=== PATIENT | male | born 1955 | race Caucasian/White ===

== ENCOUNTER 2017-11-13 22:27 | Inpatient (IN) | payer OTHER ==
[~2017-11-13] VITALS: Ht 170.2 cm; Wt 81.4 kg
--- NOTE | 2017-11-13 22:27 | NUR ---
BBRA 89; "I FEEL OFF, MY BLOOD PRESSURE FEELS HIGH" BP CONTINUOUS MINING MACHINE COAL MINER 202/94 AND BS [address] NO SOB OR PAIN AT THIS MOMENT. PT IS NOTED A LITTLE STUBBORN AND REFUSING SOME TREATMENTS.
[2017-11-13] MEDS ORDERED: ALBUTEROL FS 2.5 MG/3 ML VIAL.NEB ONE (22:47)
--- NOTE | 2017-11-13 22:51 | NUR ---
PT REFUSED BREATHING TX
[2017-11-13] MEDS ORDERED: ACETAMINOPHEN 325 MG TABLET PO ONE (23:00)
[2017-11-13] MEDS ORDERED: ALBUTEROL FS 2.5 MG/3 ML VIAL.NEB NEB ONE (23:00)
--- NOTE | 2017-11-13 23:00 | NUR ---
FAMILY AT BEDSIDE.
[2017-11-13] MEDS ORDERED: ACETAMINOPHEN ES 500 MG TABLET ONE (23:01)
[2017-11-13 23:49] LABS: BASOPHILS % (AUTO) 0.2 % (0.0-2.0); EOSINOPHILS % (AUTO) 0.7 % (0.0-6.0); HEMATOCRIT 40 % (39-51); HEMOGLOBIN 13.6 g/dL (13.5-17.5); LYMPHOCYTES # (AUTO) 2.2 /CMM (0.8-4.8); LYMPHOCYTES % (AUTO) 10.7 % (20.0-44.0); MEAN CORPUSCULAR HGB CONC 34 g/dl (31.0-36.0); MEAN CORPUSCULAR VOLUME 89 fL (80-96); MONOCYTES # (AUTO) 1.1 /CMM (0.1-1.30); MONOCYTES % (AUTO) 5.4 % (2.0-12.0); NEUTROPHILS # (AUTO) 17.5 /CMM (1.8-8.9); PLATELET COUNT (AUTO) 238 /CMM (150-450); RDW COEFFICIENT OF VARIATION 14.4 (11.5-15.0); RED BLOOD CELL COUNT(AUTO) 4.51 MIL/uL (4.5-6.0); WHITE BLOOD COUNT (AUTO) 21.1 K/uL (4.3-11.0)
[2017-11-14] VITALS (7 sets, daily range): BP systolic 111–147; BP diastolic 69–80
[2017-11-14 00:01] LABS: CALCIUM, SERUM 8.1 mg/dL (8.5-10.1); CARBON DIOXIDE 22 mmol/L (21-32); CHLORIDE 103 mmol/L (98-107); CREATININE 1.5 mg/dL (0.6-1.3); GLUCOSE 205 mg/dL (74-106); POTASSIUM 3.7 mmol/L (3.5-5.1); SODIUM SERUM 140 mmol/L (136-145); UREA NITROGEN, BLOOD 19 mg/dL (7-18)
[2017-11-14 00:10] LABS: TROPONIN I < 0.017 ng/mL (0.00-0.056)
[2017-11-14 00:13] LABS: ALANINE AMINOTRANSFERASE 16 U/L (12-78); ALBUMIN 3.4 g/dL (3.4-5.0); ALKALINE PHOSPHATASE 75 U/L (46-116); ASPARTATE AMINOTRANSFERASE 5 U/L (15-37); B-TYPE NATRIURETIC PEPTIDE 1975 PG/ML (0-125); BILIRUBIN,DIRECT 0.1 mg/dL (0.0-0.2); BILIRUBIN,TOTAL 0.5 mg/dL (0.2-1.0); TOTAL PROTEIN, SERUM 7.3 g/dL (6.4-8.2)
--- NOTE | 2017-11-14 00:18 | NUR ---
ER MD AT BEDSIDE WANTING TO ADMIT FOR POSSIBLE PNA. PT REFUSING "I DONT HAVE PNA". WILL MONITOR
[2017-11-14] MEDS ORDERED: AZITHROMYCIN 500 MG in IV D5W 250 ML IV ONE (00:30)
[2017-11-14] MEDS ORDERED: CEFTRIAXONE 1GM BAG (ER ONLY) 1 GM/50 ML PIGGYBACK IV ONE (00:30)
[2017-11-14] MEDS ORDERED: AZITHROMYCIN 500 MG VIAL ONE (00:34)
[2017-11-14] MEDS ORDERED: CEFTRIAXONE 1 G VIAL ONE (00:34)
[2017-11-14] MEDS ORDERED: BENA20TA9 PO (00:46)
[2017-11-14] MEDS ORDERED: WARF-58 PO (00:52)
[2017-11-14] MEDS ORDERED: EZET10TA14 PO (00:52)
[2017-11-14] MEDS ORDERED: PARO20TA7 PO (00:52)
[2017-11-14] MEDS ORDERED: METO-356 PO (00:52)
[2017-11-14] MEDS ORDERED: AMLO5TAB7 PO (00:52)
[2017-11-14] MEDS ORDERED: MECL-102 PO (00:52)
[2017-11-14] MEDS ORDERED: GLIP10TA11 PO (00:52)
[2017-11-14] MEDS ORDERED: CLOP75TA15 PO (00:52)
[2017-11-14] MEDS ORDERED: GABA-532 PO (00:52)
--- NOTE | 2017-11-14 01:00 | NUR ---
SLOOP CAPTAIN NOTE RECEIVED REPORT FOR THE PATIENT FROM ENDBAND CUTTER HANDHEMALATHA TREVINO. PATIENT TO BE ADMITTED TO THE TELEMETRY UNIT.
--- NOTE | 2017-11-14 01:35 | NUR ---
SCRIPT ARTIST OPENING NOTE RECEIVED PATIENT ON A GURNEY, ABLE TO AMBULATE WITH ASSISTANCE FROM GURNEY TO BED. ALERT ORIENTED X4, ON 4L O2 SATURATING IN 97% PERCENT. DENIES SOB OR CHEST PAIN AT THIS TIME. IN NO APPARENT DISTRESS OR DISCOMFORT. INITIAL PHYSICAL ASSESSMENT COMPLETED, VITAL SIGNS TAKEN, PATIENT IN STABLE CONDITION, IV SITE ON LEFT FA, 18G, WITH ANTIBIOTICS RUNNING AT 250ML/HR. PATIENT AND INTACT NO SIGN OF INFILTRATION. PATIENT WAS MADE COMFORTABLE IN BED. ABLE TO COMMUNICATE NEEDS. PATIENT'S AT BEDSIDE, BELONGINGS CHECKED AND COUNTED FOR. SAFETY MEASURES IN PLACE, BED IN LOW LOCKED POSITION, SIDE RAILS UP X2, CALL LIGHT WITHIN EASY REACH, WILL CARRY OUT ADMISSION ORDERS AND CONTINUE TO MONITOR.
--- NOTE | 2017-11-14 03:00 | NUR ---
RN NOTES PATIENT WITH ORDERS FOR RESPIRATORY CULTURE, SPECIMEN CONTAINER WAS GIVEN TO PATIENT. PATIENT STATED HE DOESN'T WANT TO COUGH RIGHT NOW, WILL DO IT WHENEVER HE FEELS THE URGE. CONTAINER LEFT BY THE BEDSIDE.
[2017-11-14] MEDS ORDERED: Z GUARD REMEDY 2 OZ OINT TP PRN (04:00)
[2017-11-14] MEDS ORDERED: ALBUTEROL FS 2.5 MG/0.5 ML VIAL.NEB NEB PRN (04:00)
[2017-11-14] MEDS ORDERED: DEXAMETHASONE SOD PHOSPHATE 10 MG/ML VIAL IV ONE (04:00)
[2017-11-14] MEDS ORDERED: ZOLPIDEM TARTRATE 5 MG TABLET PO PRN (04:00)
[2017-11-14] MEDS ORDERED: ONDANSETRON HCL/PF 4 MG/2 ML VIAL IVP PRN (04:00)
[2017-11-14] MEDS ORDERED: GUAIFENESIN/D-METHORPHAN HB 5 ML UDC PO PRN (04:00)
[2017-11-14] MEDS ORDERED: ACETAMINOPHEN 325 MG TABLET PO PRN (04:00)
[2017-11-14] MEDS ORDERED: IBUPROFEN 600 MG TABLET PO PRN (04:00)
[2017-11-14] MEDS ORDERED: IPRATROPIUM NEB FS 0.5 MG/2.5 ML AMPUL.NEB NEB PRN (04:00)
--- NOTE | 2017-11-14 05:00 | NUR ---
PLASTIC SURGERY NURSE NOTE PATIENT STILL HASN'T PROVIDED WITH SPUTUM FOR THE CULTURE. REMINDED THAT IT NEEDS TO BE DONE SOON POSSIBLE. WILL CONTINUE TO MONITOR.
[2017-11-14 06:40] LABS: BASOPHILS % (AUTO) 0.3 % (0.0-2.0); EOSINOPHILS % (AUTO) 0.3 % (0.0-6.0); HEMATOCRIT 37 % (39-51); HEMOGLOBIN 12.9 g/dL (13.5-17.5); LYMPHOCYTES # (AUTO) 3.5 /CMM (0.8-4.8); LYMPHOCYTES % (AUTO) 23.2 % (20.0-44.0); MEAN CORPUSCULAR HGB CONC 35 g/dl (31.0-36.0); MEAN CORPUSCULAR VOLUME 90 fL (80-96); MONOCYTES # (AUTO) 1.1 /CMM (0.1-1.30); MONOCYTES % (AUTO) 7.1 % (2.0-12.0); NEUTROPHILS # (AUTO) 10.5 /CMM (1.8-8.9); NEUTROPHILS % (AUTO) 69.1 % (43.0-81.0); PLATELET COUNT (AUTO) 208 /CMM (150-450); RDW COEFFICIENT OF VARIATION 15.1 (11.5-15.0); RED BLOOD CELL COUNT(AUTO) 4.16 MIL/uL (4.5-6.0); WHITE BLOOD COUNT (AUTO) 15.2 K/uL (4.3-11.0)
--- NOTE | 2017-11-14 06:44 | NUR ---
LOADER OPERATOR SUPERVISOR CLOSING NOTE PATIENT IN BED SLEEPING, EASILY AROUSED WITH VERBAL STIMULI, ORIENTED X4, ON 4L O2 SATURATING IN 97% PERCENT. IN NO APPARENT DISTRESS OR DISCOMFORT AT THIS TIME. PATIENT ON TELE MONITORING WITH SR AND HR IN 50-60S. PATIENT IN STABLE CONDITION, IV SITE ON LEFT FA, 18G PATIENT AND INTACT NO SIGN OF INFILTRATION. PATIENT KEPT CLEAN AND COMFORTABLE IN BED. ABLE TO COMMUNICATE NEEDS. SAFETY MEASURES IN PLACE, BED IN LOW LOCKED POSITION, SIDE RAILS UP X2, CALL LIGHT WITHIN EASY REACH, WILL ENDORSE TO AM NURSE FOR CONTINUITY OF CARE.
[2017-11-14 07:21] LABS: CALCIUM, SERUM 7.9 mg/dL (8.5-10.1); CREATININE 1.6 mg/dL (0.6-1.3); MAGNESIUM 1.6 mg/dL (1.8-2.4); PHOSPHORUS 3.4 mg/dL (2.5-4.9); POTASSIUM 3.8 mmol/L (3.5-5.1)
--- NOTE | 2017-11-14 08:00 | NUR ---
ms rn received on bed, awake,alert,oriented x4,not in any form of distress, on o2 2 liters w/ adequate saturation,no sob noted ,denies pain at this time, will monitor patient's condition.
[2017-11-14] MEDS ORDERED: ENOXAPARIN SODIUM 40 MG/0.4 ML DISP.SYRIN SQ SCH (09:00)
--- NOTE | 2017-11-14 09:00 | NUR ---
MS PENNY BREAKFAST SERVED.DUE MEDS GIVEN,TOLERATED WELL.
[2017-11-14] MEDS ORDERED: Magnesium 1GM/D5W 100ML PREMIX 100 ML IV SCH (10:34)
--- NOTE | 2017-11-14 11:20 | NUR ---
MS RN WAS SEEN BY Anyi OCONNOR/ ORDERS MADE AND CARRIED OUT.
[2017-11-14] MEDS: MECLIZINE HCL 25 MG TABLET PO SCH ×2 (13:00→18:57)
[2017-11-14] MEDS ORDERED: ACETAMINOPHEN 650 MG/20.3 ML UDC NG PRN (15:00)
[2017-11-14 18:28] LABS: APPEARANCE,URINE CLEAR (CLEAR); BILIRUBIN,URINE NEGATIVE (NEGATIVE); BLOOD, URINE NEGATIVE Ery/uL (NEGATIVE); COLOR,URINE YELLOW (YELLOW); KETONES,URINE NEGATIVE (NEGATIVE); LEUKOCYTE ESTERASE ,URINE NEGATIVE (NEGATIVE); NITRITE, URINE NEGATIVE (NEGATIVE); PROTEIN,URINE NEGATIVE (NEGATIVE); UGLUCOSE 3+ mg/dL (NEGATIVE); UROBILINOGEN,URINE 0.2 EU/dL (0.2)
--- NOTE | 2017-11-14 19:47 | NUR ---
MS RN INITIAL NOTE PT IS OUT OF BED WALKING AROUND, STEADY GAIT. TOLERATING ACTIVITY WELL. NO SIGNS OF SOB OR DISTRESS. IV ACCESS IS INTACT AND PATENT. DENIES PAIN AT THIS TIME. BED IS IN LOW AND LOCKED POSITION, CALL LIGHT WITHIN REACH. WILL CONTINUE TO MONITOR PT
[2017-11-14] MEDS ORDERED: GABAPENTIN 100 MG CAPSULE PO SCH (22:00)
[2017-11-15] MEDS ORDERED: CEFTRIAXONE 1 G in IV NS 0.9% 50 ML IV SCH ×2
[2017-11-15] MEDS ORDERED: AZITHROMYCIN 500 MG in IV D5W 250 ML IV SCH ×2
[2017-11-15 06:38] LABS: INR 1.56 (0.87-1.13)
[2017-11-15 06:42] LABS: BASOPHILS % (AUTO) 0.2 % (0.0-2.0); HEMATOCRIT 35 % (39-51); LYMPHOCYTES # (AUTO) 2.4 /CMM (0.8-4.8); LYMPHOCYTES % (AUTO) 13.5 % (20.0-44.0); MEAN CORPUSCULAR HGB CONC 34 g/dl (31.0-36.0); MEAN CORPUSCULAR VOLUME 90 fL (80-96); MONOCYTES % (AUTO) 5.7 % (2.0-12.0); NEUTROPHILS # (AUTO) 14.5 /CMM (1.8-8.9); NEUTROPHILS % (AUTO) 80.6 % (43.0-81.0); PLATELET COUNT (AUTO) 209 /CMM (150-450); RDW COEFFICIENT OF VARIATION 14.9 (11.5-15.0); RED BLOOD CELL COUNT(AUTO) 3.87 MIL/uL (4.5-6.0)
[2017-11-15 06:48] LABS: CALCIUM, SERUM 8.4 mg/dL (8.5-10.1); CREATININE 1.5 mg/dL (0.6-1.3); PHOSPHORUS 3.6 mg/dL (2.5-4.9); POTASSIUM 3.8 mmol/L (3.5-5.1)
--- NOTE | 2017-11-15 06:54 | NUR ---
MS RN CLOSING NOTE PT IS IN BED RESTING. NO SIGNS OF SOB OR DISTRESS ON RA. IV ACCESS IS INTACT AND PATENT. NO ACUTE CHANGES THROUGHOUT THE SHIFT. BED IS IN LOW AND LOCKED POSITION, CALL LIGHT WITHIN REACH. WILL ENDORSE TO DAYSHIFT
[2017-11-15 07:00] LABS: THYROID STIMULATING HORMONE 0.426 uIU/mL (0.358-3.74)
[2017-11-15 08:00] VITALS: BP 123/75
--- NOTE | 2017-11-15 08:00 | NUR ---
ms rn received on bed, awake,alert,oriented x4,not in any form of distress, respirations even and unlabored,no sob noted, lungs are clear,abdomen soft,positive bowel sounds,denies pain at this time, will monitor patient.
[2017-11-15 08:40] LABS: ABG BASE EXCESS -3.1 mmol/L; ABG OXYGEN SATURATION 95.5 % (92.0-98.5); ABG PH 7.405 (7.350-7.450); COHb 0.3 % (0.5-1.5); MetHb 0.3 % (0.0-1.5); O2Hb 94.9 % (94.0-97.0); SITE, ABG Right Radial; VENT MODE, BG R/A
[2017-11-15] MEDS ORDERED: METOPROLOL SUCCINATE 25 MG TAB.SR.24H PO SCH (09:00)
[2017-11-15] MEDS ORDERED: AMLODIPINE BESYLATE 5 MG TABLET PO SCH (09:00)
[2017-11-15] MEDS ORDERED: CLOPIDOGREL BISULFATE 75 MG TABLET PO SCH (09:00)
[2017-11-15] MEDS ORDERED: glipiZIDE 10 MG TABLET PO SCH (09:00)
[2017-11-15] MEDS ORDERED: EZETIMIBE 10 MG TABLET PO SCH (09:00)
[2017-11-15] MEDS ORDERED: PAROXETINE HCL 20 MG TABLET PO SCH (09:00)
[2017-11-15] MEDS: MECLIZINE HCL 25 MG TABLET PO SCH ×2 (09:13→13:35)
[2017-11-15 09:14] VITALS: BP 123/75
--- NOTE | 2017-11-15 09:35 | NUR ---
ms perdomo breakfast given, due meds given,tolerated well.
--- NOTE | 2017-11-15 12:00 | NUR ---
ms rn was seen by ananda with order to go home today,will monitor patient.
[2017-11-15] MEDS ORDERED: LEVO750T21 PO (12:51)
--- NOTE | 2017-11-15 13:00 | NUR ---
ms turner off instructions given,patient went home accompanied by ,all needs attended.
[2017-11-15] MEDS ORDERED: LACTOBACILLUS RHAMNOSUS GG 1 EACH CAP.SPRINK PO SCH (17:00)
== END 2017-11-15 13:40 | disposition home or self-care (01) | DRG 193 ==
LOC: ER 22:29 → TELE 11-14 01:18 → MED 11-14 11:51
PROVIDERS: ADMIT Nurse Practitioner Acute Care; ATTEND Nurse Practitioner Acute Care
DX: J18.9 Pneumonia, unspecified organism (principal); N17.0 Acute kidney failure with tubular necrosis; I13.0 Hypertensive heart and chronic kidney disease with heart failure and stage 1 through stage 4 chronic kidney disease, or unspecified chronic kidney disease; I50.32 Chronic diastolic (congestive) heart failure; E11.22 Type 2 diabetes mellitus with diabetic chronic kidney disease; I25.2 Old myocardial infarction; N18.9 Chronic kidney disease, unspecified; E83.42 Hypomagnesemia; D72.829 Elevated white blood cell count, unspecified
CPT/HCPCS: 36415; 36600; 71045-TC; 80048-TC; 80061-TC; 80076-TC; 81000-TC; 83605-TC; 83735-TC; 83880; 84100-TC; 84443-TC; 84484-TC; 85025-TC; 85730-TC; 87040-TC; 87081-TC; 93307-TC; A4216; A4606; J0456; J0696; J1100; J1650; J3475; J7050; J7060; J8597; Z7610

== ENCOUNTER 2019-01-11 17:22 | Inpatient (IN) | payer OTHER ==
[~2019-01-11] VITALS: Ht 165.1 cm; Wt 83.5 kg
[2019-01-11] VITALS (17 sets, daily range): BP systolic 99–194; BP diastolic 46–143
[~2019-01-11 17:22] MED LIST: AMLO5TAB9 PO; CLOP75TA15 PO; EZET10TA14 PO; GABA-532 PO; GLIP10TA11 PO; LEVO750T21 PO; MECL-102 PO; METO-356 PO; PARO20TA7 PO; WARF-58 PO
[2019-01-11] MEDS ORDERED: FUROSEMIDE 40 MG/4 ML VIAL IV ONE (17:30)
[2019-01-11] MEDS ORDERED: MORPHINE SULFATE INJ 2 MG/ML DISP.SYRIN IV ONE (17:30)
[2019-01-11] MEDS ORDERED: ONDANSETRON HCL/PF 4 MG/2 ML VIAL IVP ONE (17:30)
[2019-01-11] MEDS ORDERED: NITROGLYCERIN 0.4 MG/TAB BOTTLE SL ONE (17:30)
[2019-01-11] MEDS ORDERED: ASPIRIN 325 MG TABLET PO ONE (17:30)
[2019-01-11] MEDS ORDERED: ISOS30TA6 PO (17:36)
[2019-01-11] MEDS ORDERED: GLIP10TA21 PO (17:36)
[2019-01-11] MEDS ORDERED: BENA20TA9 PO (17:36)
[2019-01-11] MEDS ORDERED: METF-440 PO (17:36)
[2019-01-11] MEDS ORDERED: WARF2.5T85 PO (17:36)
[2019-01-11 17:37] LABS: BASOPHILS % (AUTO) 0.1 % (0.0-2.0); EOSINOPHILS % (AUTO) 1.5 % (0.0-6.0); HEMATOCRIT 45 % (39-51); LYMPHOCYTES # (AUTO) 3.4 /CMM (0.8-4.8); LYMPHOCYTES % (AUTO) 32.5 % (20.0-44.0); MEAN CORPUSCULAR HGB CONC 34 g/dl (31.0-36.0); MEAN CORPUSCULAR VOLUME 92 fL (80-96); MONOCYTES # (AUTO) 0.9 /CMM (0.1-1.30); MONOCYTES % (AUTO) 8.2 % (2.0-12.0); NEUTROPHILS # (AUTO) 6.1 /CMM (1.8-8.9); NEUTROPHILS % (AUTO) 57.7 % (43.0-81.0); PLATELET COUNT (AUTO) 244 /CMM (150-450); RED BLOOD CELL COUNT(AUTO) 4.86 MIL/uL (4.5-6.0); WHITE BLOOD COUNT (AUTO) 10.5 K/uL (4.3-11.0)
[2019-01-11] MEDS ORDERED: ONDANSETRON HCL/PF 4 MG/2 ML VIAL ONE (17:38)
[2019-01-11] MEDS ORDERED: FUROSEMIDE 40 MG/4 ML VIAL ONE (17:38)
[2019-01-11] MEDS ORDERED: MORPHINE SULFATE INJ 2 MG/ML DISP.SYRIN ONE (17:38)
[2019-01-11] MEDS ORDERED: ASPIRIN 325 MG TABLET ONE (17:38)
[2019-01-11] MEDS ORDERED: NITROGLYCERIN 0.4 MG/TAB BOTTLE ONE (17:38)
--- NOTE | 2019-01-11 17:42 | NUR ---
BIB RA C/O SOB. PATIENT A/OX4, RECEIVED ON NRB MASK, CHANGED TO NASAL CANNULA AT 5LPM WITH SPO2 OF 98%. DENIES CHEST PAIN OR DISCOMFORT. AT BEDSIDE. PIV PRESENT SPORTS BROADCASTER. WILL CONTINUE TO MONITOR.
[2019-01-11 17:48] LABS: CALCIUM, SERUM 8.9 mg/dL (8.5-10.1); CREATININE 1.4 mg/dL (0.6-1.3)
[2019-01-11 18:01] LABS: ALBUMIN 3.3 g/dL (3.4-5.0); BILIRUBIN,TOTAL 0.3 mg/dL (0.2-1.0); TOTAL PROTEIN, SERUM 7.4 g/dL (6.4-8.2)
--- NOTE | 2019-01-11 18:10 | NUR ---
CALLED CLOTH DOFFER THROUGH OPERATOR. ON THE PHONE WITH DR RATLIFF
--- NOTE | 2019-01-11 18:11 | NUR ---
306-2 TELE UPDATED BED
[2019-01-11] MEDS ORDERED: NTG 50 MG/D5W250 ML BOTTL 250 ML IV ONE ×2 (18:17→18:30)
[2019-01-11] MEDS ORDERED: MAGNESIUM HYDROXIDE 30 ML UDC PO PRN (19:30)
[2019-01-11] MEDS ORDERED: MORPHINE SULFATE INJ 2 MG/ML DISP.SYRIN IV PRN (19:30)
[2019-01-11] MEDS ORDERED: ACETAMINOPHEN 325 MG TABLET PO PRN (19:30)
[2019-01-11] MEDS ORDERED: HYDROCODONE/APAP 5/325MG 1 EACH TABLET PO PRN (19:30)
[2019-01-11] MEDS ORDERED: ONDANSETRON HCL/PF 4 MG/2 ML VIAL IVP PRN (19:30)
[2019-01-11] MEDS ORDERED: MAG HYDROX/AL HYDROX/SIMETH 30 ML UDC PO PRN (19:30)
[2019-01-11] MEDS ORDERED: ZOLPIDEM TARTRATE 5 MG TABLET PO PRN (19:30)
[2019-01-11] MEDS ORDERED: Z GUARD REMEDY 2 OZ OINT TP PRN (19:30)
--- NOTE | 2019-01-11 19:31 | NUR ---
REPORT GIVEN TO MOUSTAPHA PENNY. PATIENT IS GOING TO ROOM 262.
--- NOTE | 2019-01-11 19:45 | NUR ---
SALES ENGINEER RCD PT FROM ER W/DX NSTEMI, HTN URGENCY; PT ON NITRO DRIP AT 20 MCG/MIN. PT A/O x4; AMBULATORY. NSR ON MONITOR. O2 5L NC WITH DIMINISHED LUNG SOUNDS. SKIN INTACT. AT BEDSIDE. UPDATED ON PLAN OF CARE. VERBALIZED UNDERSTANDING. PT REQUESTING HIS COUMADIN 2.5 HE DID NOT TAKE IT PRIOR TO ADMISSION. WILL PLACE CALL TO MD REGARDING MEDICATIONS.
--- NOTE | 2019-01-11 20:00 | NUR ---
AMERICAN SIGN LANGUAGE TEACHER PROVIDED PT WITH SANDWICH; REMAINS AT BEDSIDE.
[2019-01-11] MEDS ORDERED: NTG 50 MG/D5W250 ML BOTTL 250 ML IV PRN (20:30)
[2019-01-11] MEDS ORDERED: DEXTROSE 50%-WATER 50 ML DISP.SYRIN IV PRN (20:30)
[2019-01-11] MEDS: WARFARIN SODIUM 2.5 MG TABLET PO SCH (21:40)
--- NOTE | 2019-01-11 21:50 | NUR ---
DECORATION CHECKER BLOOD GLUCOSE 377; 10 UNITS REGULAR INSULIN SQ TO RLQ. PT EDUCATED ON THE USE OF INSULIN; VERBALIZES UNDERSTANDING. CONTINUE TO MONITOR.
[2019-01-11] MEDS: BLOOD SUGAR DIAGNOSTIC 1 EACH STRIP VI SCH (21:52)
[2019-01-11] MEDS: *INSULIN REGULAR(HUMULIN R)HUM 100 UNIT/ML VIAL SQ PRN (22:25)
[2019-01-12] VITALS (33 sets, daily range): BP systolic 102–177; BP diastolic 50–96
--- NOTE | 2019-01-12 01:00 | NUR ---
ETL TESTER NITRO DRIP TITRATED OFF BP 105/70; CONTINUE TO MONITOR.
[2019-01-12 05:19] LABS: BASOPHILS # (AUTO) 0.1 /CMM (0.0-0.2); BASOPHILS % (AUTO) 0.6 % (0.0-2.0); EOSINOPHILS % (AUTO) 1.8 % (0.0-6.0); HEMATOCRIT 41 % (39-51); LYMPHOCYTES # (AUTO) 3.2 /CMM (0.8-4.8); LYMPHOCYTES % (AUTO) 33.7 % (20.0-44.0); MEAN CORPUSCULAR HGB CONC 34 g/dl (31.0-36.0); MEAN CORPUSCULAR VOLUME 90 fL (80-96); MONOCYTES % (AUTO) 10.5 % (2.0-12.0); NEUTROPHILS # (AUTO) 5.1 /CMM (1.8-8.9); NEUTROPHILS % (AUTO) 53.4 % (43.0-81.0); PLATELET COUNT (AUTO) 221 /CMM (150-450); RED BLOOD CELL COUNT(AUTO) 4.55 MIL/uL (4.5-6.0); WHITE BLOOD COUNT (AUTO) 9.6 K/uL (4.3-11.0)
[2019-01-12 05:32] LABS: CALCIUM, SERUM 8.7 mg/dL (8.5-10.1); CREATININE 1.4 mg/dL (0.6-1.3); MAGNESIUM 1.7 mg/dL (1.8-2.4); PHOSPHORUS 3.3 mg/dL (2.5-4.9)
[2019-01-12 05:43] LABS: THYROID STIMULATING HORMONE 2.312 uIU/mL (0.358-3.74)
--- NOTE | 2019-01-12 06:20 | NUR ---
CLERICAL COORDINATOR PT VERY COMPLIANT WITH CARE HOWEVER HE DOES GET UPSET EASILY BECAUSE HE IS NOT ABLE TO SLEEP WELL; NOISE FROM THE MONITORS; HOURLY ROUNDING; LAB WORK. ATTEMPTED TO MAKE THE ENVIRONMENT QUIET POSSIBLE.
--- NOTE | 2019-01-12 06:23 | NUR ---
DURABLE MEDICAL EQUIPMENT REPAIRER PT DECLINED SCDS; PROVIDED PT ON BENEFITS BUT HE STILL DECLINED THEM.
[2019-01-12] MEDS: BLOOD SUGAR DIAGNOSTIC 1 EACH STRIP VI SCH ×4 (07:30→21:25)
[2019-01-12] MEDS ORDERED: METOPROLOL SUCCINATE 25 MG TAB.SR.24H PO SCH (09:00)
[2019-01-12] MEDS ORDERED: ASPIRIN 325 MG TABLET PO SCH (09:00)
[2019-01-12] MEDS: PANTOPRAZOLE 40 MG TABLET.DR PO SCH (09:02)
[2019-01-12] MEDS: EZETIMIBE 10 MG TABLET PO SCH (09:02)
[2019-01-12] MEDS: FUROSEMIDE 40 MG/4 ML VIAL IV SCH (09:02)
[2019-01-12] MEDS: ISOSORBIDE MONONITRATE (30MG) 30 MG TAB.SR.24H PO SCH (09:06)
[2019-01-12] MEDS: AMLODIPINE BESYLATE 5 MG TABLET PO SCH (09:06)
[2019-01-12] MEDS: CLOPIDOGREL BISULFATE 75 MG TABLET PO SCH (09:06)
[2019-01-12] MEDS: BENAZEPRIL HCL 20 MG TABLET PO SCH (09:07)
[2019-01-12] MEDS: ATORVASTATIN 40 MG TABLET PO SCH ×2 (09:30→09:53)
[2019-01-12] MEDS: Magnesium 1GM/D5W 100ML PREMIX 100 ML IV SCH ×2 (09:53→10:42)
--- NOTE | 2019-01-12 09:59 | NUR ---
RN NOTE PT REFUSED LIPITOR STATING "THAT MEDICATION GIVES ME BAD REACTION, I HAVE MUSCLE PAIN". DR VOGEL MADE AWRE WILL CHANGE IT TO SOMETHING ELSE. Addendum: 01/12/19 at 1001 by MARY CARNEY RN DR COBURN MADE AWARE.
[2019-01-12] MEDS ORDERED: POTASSIUM CHLORIDE 20 MEQ TAB.PRT.SR PO ONE (10:00)
[2019-01-12 12:08] LABS: CALCIUM, SERUM 8.9 mg/dL (8.5-10.1); CREATININE 1.4 mg/dL (0.6-1.3); POTASSIUM 3.6 mmol/L (3.5-5.1)
[2019-01-12] MEDS: INSULIN REGULAR, HUMAN 100 UNIT/ML 3 ML VIAL SQ PRN ×2 (12:25→18:08)
--- NOTE | 2019-01-12 13:00 | NUR ---
RN NOTES PATIENT AWAKE,ALERT, ORIENTED. DENIES PAIN, ACCUCHECKS DONE, INSULIN COVERAGE ADMINISTERED ORDERED. DENIES PAIN. VOIDING WELL.BP WITHIN RANGE.REST PROMOTED. CONTINUE MONITOR
--- NOTE | 2019-01-12 13:30 | NUR ---
RN NOTE TROPONIN LEVEL DECREASED TO 2.[address] COBURN, NO NEW ORDERS AND NO NEED TO RECHECK TROPONIN ANYMORE. WILL CONTINUE TO MONITOR THE PT. PT COMFORTABLE.
--- NOTE | 2019-01-12 16:29 | NUR ---
RN NOTE PT EARLIER VERBALIZED WISH TO GO HOME, INSTRUCTED TO STAY AT THE HOSPITAL DUE TO TROPONIN LEVELS AND TX, NEEDS TELEMETRY MONITORING AND CLEARANCE FROM THE DOCTOR. PT VERBALIZED UNDERSTANDING, AT BEDSIDE, PT TO BE TRANSFERRED TO TELEMETRY FLOOR TO RM 116-1, REPORT GIVEN TO ALFREDO VORA SULAIMAN.
--- NOTE | 2019-01-12 16:30 | NUR ---
RN NOTES RECEIVED REPORT FROM MARY THAT THEY ARE TRANSFERRING A PATIENT FROM ICU. PATIENT ARRIVED TO THE UNIT VIA WHEELCHAIR ACCOMPANIED BY TWO NURSES. PATIENT WAS TAKEN TO ROOM 116-1 AND WAS HELP TO THE BED. PATIENT ALERT AND ORIENTED X4. ABLE TO MAKE NEEDS KNOWN. NO PAIN OR ACUTE DISTRESS AT THIS TIME. RESPIRATION EVEN AND UNLABORED. SKIN IS DRY WARM TO TOUCH. PATIENT ON ROOM AIR. TOLERATED WELL. TELE MONITOR WAS PLACED. PATIENT IS CURRENTLY ON SINUS RHYTHM WITH HR OF 64. PATIENT WAS ABLE TO AMBULATE WITH HELP. NOTED WITH RIGHT FA #20G AND LEFT FA #20G. INTACT AND FLUSHING WELL. ALL NEEDS ANTICIPATED. KEPT CLEAN AND DRY. CALL LIGHT WITHIN REACHED. BED LOCKED AND IN LOWEST POSITION. SAFETY MEASURES OBSERVED. WILL CONTINUE TO MONITOR CLOSELY.
--- NOTE | 2019-01-12 18:39 | NUR ---
RN CLOSING NOTES PATIENT CONTINUES TO REMAIN IN STABLE CONDITION. PATIENT WAS ABLE TO TOLERATE MEALS WELL. B/S WAS CHECKED AND IT WAS 361. PATIENT WAS GIVEN 15 UNITS OF INSULIN ORDERED. PATIENT REMAINS IN SINUS RHYTHM WITH A HR OF 71. ALL NEEDS ANTICIPATED. KEPT CLEAN AND DRY. CALL LIGHT WITHIN REACHED. BED LOCKED AND IN LOWEST POSITION. SAFETY MEASURES OBSERVED. WILL CONTINUE TO MONITOR. ENDORSED TO PM NURSE FOR SULAIMAN.
--- NOTE | 2019-01-12 19:30 | NUR ---
RN OPEING NOTES: RECIEVED PT IN STABLE CONDITION. PATIENT REMAINS IN SINUS RHYTHM WITH A HR OF 71. ALL NEEDS ANTICIPATED.WILL KEPEP CLEAN AND DRY. CALL LIGHT WITHIN REACHED. BED LOCKED AND IN LOWEST POSITION. SAFETY MEASURES OBSERVED. WILL CONTINUE TO MONITOR AND CARRY OUT PLAN OF CARE..
[2019-01-12] MEDS: WARFARIN SODIUM 2.5 MG TABLET PO SCH (21:00)
[2019-01-12] MEDS: CARVEDILOL 6.25 MG TABLET PO SCH (21:19)
[2019-01-13 02:00] VITALS: BP 121/65
[2019-01-13 04:00] VITALS: BP 118/64
[2019-01-13 07:06] LABS: BASOPHILS # (AUTO) 0.1 /CMM (0.0-0.2); BASOPHILS % (AUTO) 0.7 % (0.0-2.0); EOSINOPHILS % (AUTO) 1.4 % (0.0-6.0); HEMATOCRIT 42 % (39-51); HEMOGLOBIN 14.3 g/dL (13.5-17.5); LYMPHOCYTES # (AUTO) 3.5 /CMM (0.8-4.8); LYMPHOCYTES % (AUTO) 34.3 % (20.0-44.0); MEAN CORPUSCULAR HGB CONC 34 g/dl (31.0-36.0); MEAN CORPUSCULAR VOLUME 90 fL (80-96); MONOCYTES # (AUTO) 1.1 /CMM (0.1-1.30); MONOCYTES % (AUTO) 10.9 % (2.0-12.0); NEUTROPHILS # (AUTO) 5.4 /CMM (1.8-8.9); NEUTROPHILS % (AUTO) 52.7 % (43.0-81.0); PLATELET COUNT (AUTO) 218 /CMM (150-450); RED BLOOD CELL COUNT(AUTO) 4.63 MIL/uL (4.5-6.0); WHITE BLOOD COUNT (AUTO) 10.1 K/uL (4.3-11.0)
--- NOTE | 2019-01-13 07:13 | NUR ---
RN OPEING NOTES: PT IN STABLE CONDITION. PATIENT REMAINS IN SINUS RHYTHM WITH A HR OF 71. ALL NEEDS MET. WILL KEPEP CLEAN AND DRY. CALL LIGHT WITHIN REACHED. BED LOCKED AND IN LOWEST POSITION. SAFETY MEASURES OBSERVED. WILL ENDORSE TO AM TO MONITOR AND CARRY OUT PLAN OF CARE
[2019-01-13 07:22] LABS: CALCIUM, SERUM 8.4 mg/dL (8.5-10.1); CREATININE 1.5 mg/dL (0.6-1.3); PHOSPHORUS 3.1 mg/dL (2.5-4.9); POTASSIUM 3.8 mmol/L (3.5-5.1)
[2019-01-13] MEDS: INSULIN REGULAR, HUMAN 100 UNIT/ML 3 ML VIAL SQ PRN ×3 (07:44→17:48)
[2019-01-13] MEDS: PANTOPRAZOLE 40 MG TABLET.DR PO SCH (07:45)
[2019-01-13] MEDS: BLOOD SUGAR DIAGNOSTIC 1 EACH STRIP VI SCH ×4 (07:54→22:45)
--- NOTE | 2019-01-13 07:56 | NUR ---
CLINICAL PROGRAM CONSULTANT NOTE RECEIVED PATIENT IN BED ALERT , ORIENTED, ON RA, NO SOB NOTED AT THIS TIME , RT FA HL INTACT , BLOOD SUGAR CHECKED WILL GIVE COVERAGE WITH INSULIN , ON TEL MONITOR SR , PLAN IF CARE DISCUSSED WITH PATIENT ,BED IN LOWEST AND LOCKED POSITION , CALL LIGHT WITHIN REACH ,WILL CONT TO MONITOR CLOSELY
[2019-01-13 08:00] VITALS: BP 166/81
[2019-01-13] MEDS: EZETIMIBE 10 MG TABLET PO SCH (08:10)
[2019-01-13] MEDS: BENAZEPRIL HCL 20 MG TABLET PO SCH (08:11)
[2019-01-13] MEDS: ISOSORBIDE MONONITRATE (30MG) 30 MG TAB.SR.24H PO SCH (08:11)
[2019-01-13] MEDS: CARVEDILOL 6.25 MG TABLET PO SCH ×2 (08:12→21:41)
[2019-01-13] MEDS: AMLODIPINE BESYLATE 5 MG TABLET PO SCH (08:13)
[2019-01-13] MEDS: CLOPIDOGREL BISULFATE 75 MG TABLET PO SCH (08:13)
[2019-01-13] MEDS: FUROSEMIDE 40 MG/4 ML VIAL IV SCH (08:14)
--- NOTE | 2019-01-13 09:00 | NUR ---
SEAFOOD CLERK NOTE ALL MORNING PO MEDS GIVEN INSTRUCTED HOW TO TAKE AND POSSIBLE SIDE EFFECTS
--- NOTE | 2019-01-13 10:52 | NUR ---
SIZING SPONGER NOTE DR RYAN AT BEDSIDE , SPOKE WITH PATIENT ,STATED THAT PER CARDIOLOGY NEEDS STRESS TEST , WILL F\IU
--- NOTE | 2019-01-13 10:54 | NUR ---
BRICK AND TILE MAKING MACHINE OPERATOR NOTE DIETITIAN AT BEDSIDE, DISCUSSED DIET AT BEDSIDE
--- NOTE | 2019-01-13 11:43 | NUR ---
satellite television installer note spoke wit dr galeas steam gigger ,stated that will see patient within 1-2 hour ,patient notifyed
[2019-01-13 12:00] VITALS: BP_SYST 127; BP_DIAS 68; BP_DIAS 78
--- NOTE | 2019-01-13 15:00 | NUR ---
RIB MATCHER AND FITTER NOTE REPORTED TO DR COBURN MANAGER GAME THAT COUMADIN DOSE WAS HELD BY RN LAST NIGHT INR 2.2, STATED CONT DOSE TODAY SCHEDULED AT 2100, TODAT INR IS 1.8, AWARE
--- NOTE | 2019-01-13 15:31 | NUR ---
telephone installer note seen by dr gifford radio artist , carlo t to do stress test , signed consent , will keep npo after midnight
[2019-01-13 16:00] VITALS: BP 134/72
--- NOTE | 2019-01-13 16:51 | NUR ---
DIRECTOR OF PROCUREMENT NOTE TRANSFERRED TO ROOM 102 PER PATIENT REQUEST
--- NOTE | 2019-01-13 18:41 | NUR ---
radiotelephone technical operator note having dinner , able to eat self , all needs attended .no c\o chest pian or discomfort at this time ,will cont to monitor closely
[2019-01-13 20:00] VITALS: BP 152/70
[2019-01-13] MEDS: WARFARIN SODIUM 2.5 MG TABLET PO SCH (21:41)
[2019-01-13] MEDS: *INSULIN REGULAR(HUMULIN R)HUM 100 UNIT/ML VIAL SQ PRN (21:52)
[2019-01-14] VITALS: BP 123/59
[2019-01-14 04:00] VITALS: BP 143/76
[2019-01-14 06:36] LABS: BASOPHILS # (AUTO) 0.1 /CMM (0.0-0.2); BASOPHILS % (AUTO) 0.6 % (0.0-2.0); EOSINOPHILS % (AUTO) 1.4 % (0.0-6.0); HEMATOCRIT 43 % (39-51); HEMOGLOBIN 14.6 g/dL (13.5-17.5); LYMPHOCYTES # (AUTO) 3.8 /CMM (0.8-4.8); LYMPHOCYTES % (AUTO) 33.3 % (20.0-44.0); MEAN CORPUSCULAR HGB CONC 34 g/dl (31.0-36.0); MEAN CORPUSCULAR VOLUME 91 fL (80-96); MONOCYTES # (AUTO) 1.3 /CMM (0.1-1.30); MONOCYTES % (AUTO) 11.2 % (2.0-12.0); NEUTROPHILS # (AUTO) 6.1 /CMM (1.8-8.9); NEUTROPHILS % (AUTO) 53.5 % (43.0-81.0); PLATELET COUNT (AUTO) 221 /CMM (150-450); RED BLOOD CELL COUNT(AUTO) 4.75 MIL/uL (4.5-6.0); WHITE BLOOD COUNT (AUTO) 11.4 K/uL (4.3-11.0)
[2019-01-14] MEDS: INSULIN REGULAR, HUMAN 100 UNIT/ML 3 ML VIAL SQ PRN ×2 (06:42→12:39)
[2019-01-14 06:43] LABS: CALCIUM, SERUM 8.3 mg/dL (8.5-10.1); CREATININE 1.3 mg/dL (0.6-1.3); MAGNESIUM 1.8 mg/dL (1.8-2.4); PHOSPHORUS 3.3 mg/dL (2.5-4.9); POTASSIUM 3.8 mmol/L (3.5-5.1)
[2019-01-14] MEDS: BLOOD SUGAR DIAGNOSTIC 1 EACH STRIP VI SCH ×2 (06:43→12:35)
--- NOTE | 2019-01-14 06:59 | NUR ---
rn notes alert and oriented, in bed lying comfortably watching tv. no distress noted. on room air tolerating well. no complaint of pain or discomfort. ambulatory. verbally able to communicate needs. kept clean and dry will continue to monitor and endorse to next shift for continuity of care.
[2019-01-14 08:00] VITALS: BP 154/57
--- NOTE | 2019-01-14 08:00 | NUR ---
TELE1/RN AM SHIFT INITIAL NOTES RECEIVED PT ASLEEP IN BED, EASILY AROUSED, PT A/O X 4, DENIES ANY SYMPTOMS, NO ACUTE CHANGE OF CONDITION NOTED. PT ON ROOM AIR SATURATING @ 98%, RESPIRATIONS EVEN AND UNLABORED. ON TELE WITH SINUS RHYTHM, HR 61. IV SITE FLUSHED PATENT WITH NO S/S OF INFECTION, SL. PT IS ON NPO STATUS FOR SCHEDULED CARDIAC STRESS THIS MORNING, CONSENT SIGNED AND PT UNDERSTOOD THE PROCEDURE. SCHEDULED AM MEDS HELD UNTIL THE FIRST PART OF THE TEST IS COMPLETED. PT IS STABLE AT THIS TIME. CL WITHIN REACHED AND SAFETY MAINTAINED. ON GOING MONITORING.
[2019-01-14] MEDS ORDERED: REGADENOSON 0.4 MG/5 ML DISP.SYRIN IVP ONE (08:30)
--- NOTE | 2019-01-14 09:30 | NUR ---
TELE1/RN STRESS TEST PT LEFT VIA WHEELCHAIR FOR CARDIAC STRESS TEST.
--- NOTE | 2019-01-14 10:27 | NUR ---
TELE1/RN BACK ON FLOOR - STRESS TEST PART 1 COMPLETED PT RETURNED TO ROOM HAS COMPLETED THE FIRST PART OF THE STRESS TEST. AM MEDS TO BE GIVEN.
[2019-01-14] MEDS: CLOPIDOGREL BISULFATE 75 MG TABLET PO SCH (10:29)
[2019-01-14] MEDS: EZETIMIBE 10 MG TABLET PO SCH (10:30)
[2019-01-14] MEDS: CARVEDILOL 6.25 MG TABLET PO SCH (10:30)
[2019-01-14] MEDS: ISOSORBIDE MONONITRATE (30MG) 30 MG TAB.SR.24H PO SCH (10:30)
--- NOTE | 2019-01-14 10:30 | NUR ---
TELE1/RN ROUNDS - DR. RYAN UPDATED PT'S CONDITION. PT SEEN & EXAMINED BY DR. RYAN. PER MD PT WILL BE DISCHARGE ONCE CARDIAC STRESS TEST IS NEGATIVE, NOTED.
[2019-01-14 10:31] VITALS: BP 154/57
[2019-01-14] MEDS: FUROSEMIDE 40 MG/4 ML VIAL IV SCH (10:31)
[2019-01-14] MEDS: PANTOPRAZOLE 40 MG TABLET.DR PO SCH (10:31)
[2019-01-14] MEDS: AMLODIPINE BESYLATE 5 MG TABLET PO SCH (10:31)
[2019-01-14] MEDS ORDERED: BENA20TA9 PO (10:58)
[2019-01-14] MEDS ORDERED: CARV6.252 PO (10:58)
--- NOTE | 2019-01-14 11:15 | NUR ---
MS1/AUTOMATIC PRESSER STRESS - PART 2 PT LEFT AGAIN VIA WHEELCHAIR FOR THE SECOND PART OF THE STRESS TEST.
--- NOTE | 2019-01-14 14:30 | NUR ---
MS1/PACKER FUSER - HOME PT OK TO BE DISCHARGE PER DR. WALKER. DISCHARGE INSTRUCTIONS AND DOCUMENTS GIVEN TO PT, VERBALIZED UNDERSTANDING. PROPERTY INVENTORY SIGNED OFF. IV SITES REMOVED, PRESSURE DRESSING APPLIED, NO S/S OF INFECTION, ID BAND REMOVED. PT LEFT MS1 UNIT AMBULATORY WITH A STEADY GAIT IN STABLE CONDITION.
[2019-01-14] MEDS ORDERED: BENAZEPRIL HCL 20 MG TABLET PO SCH (17:00)
[2019-01-14] MEDS ORDERED: WARFARIN SODIUM 5 MG TABLET PO SCH (21:00)
== END 2019-01-14 14:30 | disposition home or self-care (01) | DRG 280 ==
LOC: ER 17:23 → ICU 18:26 → TELE1 01-12 16:36 → MEDSG1 01-14 10:10
PROVIDERS: ADMIT Student in an Organized Health Care Education/Training Program
DX: I21.4 Non-ST elevation (NSTEMI) myocardial infarction (principal); N17.0 Acute kidney failure with tubular necrosis; I50.33 Acute on chronic diastolic (congestive) heart failure; I13.0 Hypertensive heart and chronic kidney disease with heart failure and stage 1 through stage 4 chronic kidney disease, or unspecified chronic kidney disease; D68.59 Other primary thrombophilia; E11.22 Type 2 diabetes mellitus with diabetic chronic kidney disease; I48.91 Unspecified atrial fibrillation; Z86.73 Personal history of transient ischemic attack (TIA), and cerebral infarction without residual deficits; E78.5 Hyperlipidemia, unspecified; F17.210 Nicotine dependence, cigarettes, uncomplicated; N18.3 Chronic kidney disease, stage 3 (moderate); Z79.84 Long term (current) use of oral hypoglycemic drugs; Z95.5 Presence of coronary angioplasty implant and graft; I25.10 Atherosclerotic heart disease of native coronary artery without angina pectoris; I25.2 Old myocardial infarction; I16.0 Hypertensive urgency; E11.51 Type 2 diabetes mellitus with diabetic peripheral angiopathy without gangrene; M79.10 Myalgia, unspecified site
CPT/HCPCS: 36415; 71045-TC; 80048-TC; 80061-TC; 80076-TC; 82962-TC; 83735-TC; 83880; 84100-TC; 84443-TC; 84484-TC; 85025-TC; 85610-TC; 85730-TC; 87081-TC; 93307-TC; A9502; G0378; J1815; J1940; J2270; J2405; J2785; J3475; J3490

== ENCOUNTER 2019-07-07 21:35 | Emergency (ER) | payer OTHER ==
[~2019-07-07] VITALS: Ht 162.6 cm; Wt 79.4 kg
[~2019-07-07 21:35] MED LIST changes: +BENA20TA9 PO; +CARV6.252 PO; -EZET10TA14 PO; +EZET10TA16 PO; -GABA-532 PO; -GLIP10TA11 PO; +GLIP10TA21 PO; +ISOS30TA6 PO; -LEVO750T21 PO; -MECL-102 PO; +METF-440 PO; -METO-356 PO; -PARO20TA7 PO; +WARF2.5T85 PO
--- NOTE | 2019-07-07 21:40 | NUR ---
PT BIBRA. AAOX4. PER RA PT TOOK TOO MUCH BP MEDS (UNKNOWN WHICH). PT C/O DIZZINESS AND WEAKNESS. -KO. -LOC. NO NEURO DEFICIT. PT PLACED ON MONTIOR AND PULSE OX. BP 102/65, HR 66, P2 96. NO ACUTE DISTRESS NOTED. AWAITING MD FOR EVAL.
--- NOTE | 2019-07-07 21:40 | NUR ---
500NS GIVEN BY RA BI ARCHITECT
[2019-07-07] MEDS ORDERED: LIDOCAINE 2% JEL UROJET 10 ML MM ONE ×2 (22:10→22:30)
--- NOTE | 2019-07-07 22:15 | NUR ---
URINARY CATHETER INSERTED.
--- NOTE | 2019-07-07 22:20 | NUR ---
MANAGER CUSTOM AT BEDSIDE FOR LAB COLLECTION
[2019-07-07] MEDS ORDERED: IV NS 0.9% 1,000 ML BAG IV ONE (22:30)
[2019-07-07] MEDS ORDERED: ONDANSETRON HCL/PF 4 MG/2 ML VIAL IVP ONE (22:30)
--- NOTE | 2019-07-07 22:30 | NUR ---
resPatient is resting comfortably in bed. Easily aroused. VSS. and sister in law at bedside.
[2019-07-07] MEDS ORDERED: ONDANSETRON HCL/PF 4 MG/2 ML VIAL ONE (22:32)
[2019-07-07 22:33] LABS: BASOPHILS # (AUTO) 0.2 /CMM (0.0-0.2); BASOPHILS % (AUTO) 1.7 % (0.0-2.0); EOSINOPHILS % (AUTO) 0.5 % (0.0-6.0); HEMATOCRIT 43 % (39-51); HEMOGLOBIN 14.4 g/dL (13.5-17.5); LYMPHOCYTES # (AUTO) 2.5 /CMM (0.8-4.8); LYMPHOCYTES % (AUTO) 24.1 % (20.0-44.0); MEAN CORPUSCULAR HGB CONC 34 g/dl (31.0-36.0); MEAN CORPUSCULAR VOLUME 91 fL (80-96); MONOCYTES # (AUTO) 0.9 /CMM (0.1-1.30); MONOCYTES % (AUTO) 8.6 % (2.0-12.0); NEUTROPHILS # (AUTO) 6.7 /CMM (1.8-8.9); NEUTROPHILS % (AUTO) 65.1 % (43.0-81.0); PLATELET COUNT (AUTO) 247 /CMM (150-450); RED BLOOD CELL COUNT(AUTO) 4.67 MIL/uL (4.5-6.0); WHITE BLOOD COUNT (AUTO) 10.4 K/uL (4.3-11.0)
--- NOTE | 2019-07-07 22:50 | NUR ---
PT brought to ct
[2019-07-07 23:02] LABS: ALBUMIN 3.2 g/dL (3.4-5.0); BILIRUBIN,DIRECT 0.1 mg/dL (0.0-0.2); BILIRUBIN,TOTAL 0.6 mg/dL (0.2-1.0); CALCIUM, SERUM 9.1 mg/dL (8.5-10.1); CREATININE 1.7 mg/dL (0.6-1.3); POTASSIUM 4.1 mmol/L (3.5-5.1); TOTAL PROTEIN, SERUM 6.8 g/dL (6.4-8.2)
--- NOTE | 2019-07-07 23:10 | NUR ---
pt brpught back from ct. Placed on monitor and pulse ox. Family at bedside.
--- NOTE | 2019-07-07 23:14 | NUR ---
Patient is resting comfortably in bed. Easily aroused. VSS. Pt verbalized he is sleepy. blankets provided.
[2019-07-08 00:02] LABS: APPEARANCE,URINE Clear (CLEAR); BILIRUBIN,URINE Negative (NEGATIVE); BLOOD, URINE Moderate Ery/uL (NEGATIVE); COLOR,URINE Yellow (YELLOW); KETONES,URINE Negative (NEGATIVE); LEUKOCYTE ESTERASE ,URINE Negative (NEGATIVE); NITRITE, URINE Negative (NEGATIVE); PH,URINE 6.5 (5.0-8.0); PROTEIN,URINE 100 mg/dl (NEGATIVE); UGLUCOSE >=1000 mg/dL (NEGATIVE); UROBILINOGEN,URINE 0.2 EU/dL (0.2)
--- NOTE | 2019-07-08 00:11 | NUR ---
Patient is resting comfortably in bed with eyes closed. Easily aroused. VSS.
[2019-07-08] MEDS ORDERED: hydrALAZINE HCL IV 20 MG VIAL IV ONE (00:30)
--- NOTE | 2019-07-08 00:34 | NUR ---
ORDER FOR APRESOLINE IV CANCELED BY MD DUE TO BP BEING 142/77, HR:66, O2 98.
[2019-07-08 00:50] LABS: BACTERIA,URINE Few /HPF (None Seen); RBC,URINE TOO NUMEROUS TO COUN /HPF (0-2); SQUAMOUS EPITHELIAL CELL,UR Rare /HPF (None Seen)
--- NOTE | 2019-07-08 03:14 | NUR ---
Patient does not wish to proceed with medical care recommended by Alisson De La Cruz MD. Patient given information related to possible complications, up to and including , which could occur as a result of leaving the hospital at this time. Patient verbalizes understanding of risks involved due to leaving against medical advice. Patient has signed AMA form.
[2019-07-08 03:53] VITALS: BP 136/82
== END 2019-07-08 03:20 | disposition left against medical advice (07) ==
LOC: ER 21:36
DX: G93.49 Other encephalopathy (principal); R33.9 Retention of urine, unspecified; R31.9 Hematuria, unspecified; I10 Essential (primary) hypertension; R55 Syncope and collapse; E11.9 Type 2 diabetes mellitus without complications; Z86.73 Personal history of transient ischemic attack (TIA), and cerebral infarction without residual deficits; Z95.5 Presence of coronary angioplasty implant and graft; Z79.01 Long term (current) use of anticoagulants; Z79.899 Other long term (current) drug therapy
CPT/HCPCS: 36415; 51702; 70450; 71045; 80048; 80076; 81001; 82962; 84484; 85025; 85730; 93005; 96361; 96374; 99284; J2405; J3490; J7030; 81000-TC; 87081-TC